=== PATIENT | male | born 1990 | race Caucasian/White ===

== ENCOUNTER 2024-08-23 12:34 | Emergency (ER) | payer OTHER, SELFPAY ==
[2024-08-23 12:44] VITALS: BP 158/65
[2024-08-23 13:11] LABS: % Basophils 0.5 % (0-2); % Eosinophils 5.4 % (0-6); % Immature Granulocytes 0.7 % (0-0.5); % Lymphocytes 24.3 % (20.5-51.1); % Monocytes 10.4 % (1.7-9.3); % Neutrophils 58.7 % (42.2-75.2); Absolute Eosinophils 0.2 10^3/uL (0-0.7); Absolute Lymphocytes 1.1 10^3/uL (1.2-3.4); Absolute Monocytes 0.5 10^3/uL (0.1-0.6); Absolute Neutrophils 2.6 10^3/uL (1.4-6.5); Hematocrit 30.6 % (39.0-52.0); Hemoglobin 10.2 g/dL (13.0-18.0); Mean Corp Hgb Conc. 33.3 g/dL (33.0-37.0); Nucleated Red Blood Cells % 0 % (-); Platelet Count 116 10^3/uL (130-400); Red Cell Dist. Width 17.5 % (11.5-14.5); White Blood Cell Count 4.4 10^3/uL (4.8-10.8)
[2024-08-23 13:27] LABS: ALT (SGPT) 19 U/L (0-50); AST (SGOT) 21 U/L (17-59); Albumin 3.9 g/dl (3.5-5.0); Alkaline Phosphatase 56 U/L (38-126); Blood Urea Nitrogen 42 mg/dl (9-20); Calcium 8.5 mg/dl (8.4-10.2); Carbon Dioxide 20 mmol/L (22-30); Chloride 110 mmol/L (98-107); Glucose 118 mg/dl (70-99); Lipase 85 U/L (23-300); Potassium 5.2 mmol/L (3.5-5.1); Sodium 138 mmol/L (135-145); Total Bilirubin 0.5 mg/dl (0.2-1.3); eGFR 53.91
--- NOTE | 2024-08-23 15:57 | ED.GENMED ---
History of Present Illness
General
Chief Complaint: Swelling
Source: patient
Exam Limitations: none
Time Seen by Provider: 08/23/24 15:01
Nursing documentation reviewed up to this point in time: agreed with
History of Present Illness
History of Present Illness:
Patient status post liver transplant at [facility] in January 2023, presents to ED secondary to 2-day history of abdominal and lower leg swelling. Denies vomiting or diarrhea. Denies fever or chills. Denies nausea or vomiting. Denies change
in bowel habits. Denies recent change in medications or diet. Denies recent illness. Patient states that he is scheduled to make an appointment to see his transplant team. Patient is taking all his medications, currently as prescribed. Patient
denies alcohol intake or any other illicit medications.
Past History
Past History
ED Past Medical History: Other (ADHD, Alcoholic Hepatitis, Cirrhosis); Negative Asthma, HTN, Hypercholesterolemia or NIDDM
ED Past Surgical History: Orthopedic (Right lower leg fracture repair)
Patient has exhibited threatening behavior?: No
PSI?: No
Social History
Tobacco: Smoker
Alcohol: Daily
Drug: Marijuana, Cocaine and Other (Heroin)
Personal: Single
Living: alone
Employment: Not employed
Family History
Family History: Other (Noncontributory)
Review of Systems
Review of Systems
Allergies reviewed?: Yes
All Other Systems: ROS reviewed and negative except as documented in HPI and ROS
Constitutional: Reports no symptoms
EENT: Reports no symptoms
Respiratory: Reports no symptoms
Cardiac: Reports no symptoms
ABD/GI: Reports other (abdominal distention)
: Reports no symptoms
Musculoskeletal: Reports edema
Skin: Reports no symptoms
Neurological: Reports no symptoms
Phy Exam
Physical Exam
Physical Exam:
Physical Exam
General: no apparent distress, not acutely ill. afebrile
Head: nc/at. eomi
Neck: supple. normal range of motion
Heart: s1/s2 regular rate and rhythm, no murmur. equal radial pulses.
Lungs: no acute respiratory distress. clear bilaterally
Abdomen: normal bowel sounds. not tender. mild distention. well heading surgical scar noted over mid-abdomen
Neuro: alert and oriented x 3. no focal neurological deficits
Skin: no rash
Psychiatric: well kept. interactive and cooperative
Extremities: LE b/l edema. no calf tenderness.
Course
Orders/Labs/Results
Orders:
Orders
08/23/24 12:56
Complete Blood Count/With Diff Urgent
Comprehensive Metabolic Panel Urgent
Lipase Urgent
08/23/24 16:32
CT Abd/pel Without Iv Or Oral Urgent
Comment:
Reason For Exam: flank pain with abdominal distention
Abnormal Lab Results
08/23/24
12:56
WBC 4.4 L 10^3/uL
(4.8-10.8)
RBC 3.00 L 10^6/uL
(4.70-6.10)
Hgb 10.2 L g/dL
(13.0-18.0)
Hct 30.6 L %
(39.0-52.0)
MCV 102.0 H fL
(80.0-94.0)
MCH 34.0 H pg
(27.0-31.0)
RDW 17.5 H %
(11.5-14.5)
Plt Count 116 L 10^3/uL
(130-400)
MPV 11.0 H fL
(7.4-10.4)
Absolute Lymphs (auto) 1.1 L 10^3/uL
(1.2-3.4)
Immature Gran % 0.7 H %
(0-0.5)
Monocytes % 10.4 H %
(1.7-9.3)
Potassium 5.2 H mmol/L
(3.5-5.1)
Chloride 110 H mmol/L
(98-107)
Carbon Dioxide 20 L mmol/L
(22-30)
BUN 42 H mg/dl
(9-20)
Creatinine 1.7 H mg/dL
(0.7-1.3)
Glucose 118 H mg/dl
(70-99)
Total Protein 6.0 L g/dl
(6.3-8.2)
08/23/24 12:56
08/23/24 12:56
Vital Signs
Initial and Last Documented VS:
Initial Vital Signs
Temp Pulse Resp BP Pulse Ox
98.4 F 76 18 158/65 100
08/23/24 12:44 08/23/24 12:44 08/23/24 12:44 08/23/24 12:44 08/23/24 12:44
Last Documented Vital Signs
Temp Pulse Resp BP Pulse Ox
98.4 F 75 18 121/70 100
08/23/24 12:44 08/23/24 18:03 08/23/24 18:03 08/23/24 18:03 08/23/24 18:03
MDM/Problems Addressed
MDM/Problems Addressed:
Discussed with GI fellow on-call, covering transplant service at [facility]. Requests CT abdomen pelvis without contrast. If CT does not reveal any worsening cirrhotic findings or anything else acute, patient can be discharged home, for
urgent outpatient follow-up at the clinic.
CT abdomen pelvis without any acute findings. Patient will be given copy of CT, to be discussed with transplant team as an outpatient at the clinic. Until then, advised patient to elevate the leg at home.
*Critical Care Note
Total Time (30-74mins, 75-104mins- exclusive of procedures): Not Applicable
ED Attending Note
-
Portions of this chart may have been created with voice recognition software.� Occasional wrong word or��sound alike� substitutions may have occurred due to the inherent limitations of voice recognition software.
Discharge Plan
Departure
Patient Disposition: Home (Routine Discharge)
Date of Disposition: 08/23/24
Time of Disposition: 18:51
Patient with high blood pressure during this ER visit?: Yes
Condition: Good
Discharge Problem:
Edema
Instructions: Dependent Edema (DC)
Prescriptions:
No Action
No Current Medications
0
Referrals:
Connie Morgan MD [Family Provider] -
Activity Restrictions/Additional Instructions:
As discussed, please follow-up with your liver transplant team service at [facility] for reevaluation.
Interventions
Interventions:
*Risk Screen - Suicide Last Done: 08/23/24 12:44
*General Assessment Last Done: 08/23/24 12:44
*Neglect/Abuse Screening Last Done: 08/23/24 12:44
ED- Fall Risk Assessment Last Done: 08/23/24 18:04
*Nursing Disposition Last Done: 08/23/24 19:12
ED- Cardiac Assessment Last Done: 08/23/24 18:04
ED- Pulmonary Assessment Last Done: 08/23/24 18:04
ED-Skin Assessment Last Done: 08/23/24 18:05
Discharge Date and Time
Discharge Date/Time: 08/23/24 19:13
Print Language: CHADIAN
[2024-08-23 16:26] VITALS: BP 123/78
[2024-08-23 16:29] VITALS: BP 123/78
[2024-08-23 18:03] VITALS: BP 121/70
== END 2024-08-23 19:13 | disposition home or self-care (01) ==
LOC: EMR 12:34
PROVIDERS: Emergency Medicine; EMERGENCY PHYSICIAN Emergency Medicine; FAMILY PHYSICIAN Emergency Medicine
DX: R60.0 Localized edema (principal); R14.0 Abdominal distension (gaseous); R10.31 Right lower quadrant pain; F90.9 Attention-deficit hyperactivity disorder, unspecified type; K74.60 Unspecified cirrhosis of liver; K70.10 Alcoholic hepatitis without ascites; F17.200 Nicotine dependence, unspecified, uncomplicated; Z94.4 Liver transplant status; Z91.018 Allergy to other foods; Z91.010 Allergy to peanuts
CPT/HCPCS: 99284; 74176; 80053; 83690; 85025

== ENCOUNTER 2024-09-19 12:50 | Emergency (ER) | payer OTHER, SELFPAY ==
[2024-09-19 13:03] VITALS: BP 119/62
[2024-09-19 13:56] LABS: % Basophils 0.4 % (0-2); % Eosinophils 2.8 % (0-6); % Immature Granulocytes 0.3 % (0-0.5); % Monocytes 7.2 % (1.7-9.3); % Neutrophils 68.3 % (42.2-75.2); Absolute Eosinophils 0.2 10^3/uL (0-0.7); Absolute Lymphocytes 1.4 10^3/uL (1.2-3.4); Absolute Monocytes 0.5 10^3/uL (0.1-0.6); Absolute Neutrophils 4.6 10^3/uL (1.4-6.5); Hematocrit 35.2 % (39.0-52.0); Hemoglobin 11.3 g/dL (13.0-18.0); Mean Corp Hgb Conc. 32.1 g/dL (33.0-37.0); Mean Corpuscular Hgb 33.2 pg (27.0-31.0); Mean Corpuscular Volume 103.5 fL (80.0-94.0); Mean Platelet Volume 11.1 fL (7.4-10.4); Nucleated Red Blood Cells % 0 % (-); Platelet Count 143 10^3/uL (130-400); Red Cell Dist. Width 16.1 % (11.5-14.5); White Blood Cell Count 6.8 10^3/uL (4.8-10.8)
[2024-09-19 14:13] LABS: ALT (SGPT) 24 U/L (0-50); AST (SGOT) 19 U/L (17-59); Albumin 4.5 g/dl (3.5-5.0); Alkaline Phosphatase 83 U/L (38-126); Blood Urea Nitrogen 69 mg/dl (9-20); Carbon Dioxide 23 mmol/L (22-30); Chloride 111 mmol/L (98-107); Glucose 114 mg/dl (70-99); Lipase 379 U/L (23-300); Sodium 143 mmol/L (135-145); Total Bilirubin 0.5 mg/dl (0.2-1.3); Total Protein 6.8 g/dl (6.3-8.2); eGFR 39.57
--- NOTE | 2024-09-19 15:02 | ED.GENMED ---
History of Present Illness
General
Chief Complaint: Numbness
Source: patient
Exam Limitations: none
Time Seen by Provider: 09/19/24 15:02
Nursing documentation reviewed up to this point in time: agreed with
History of Present Illness
History of Present Illness:
34-year-old male w h/o liver transplant at [facility] in January 2023, history of ADHD, alcoholic hepatitis, cirrhosis
He was seen here 08/23 for fluid buildup in his legs, had CT abd/pelvis as requested by his transplant team which was unremarkable and told to f/u with transplant team.
Went to [facility] 09/09-09/13 had 'all kinds of tests that really didn't show anything. '
Since discharge on 09/13 states the fluid problem has resolved but he has had gradually worsening numbness that started in his feet and slowly spread up both legs to buttocks.
He is here today because since Sunday he has had increasing numbness and tingling started in both his feet and has gradually worked its way up to his lower limbs; it is numbness and 'like when I walks I can't feel where my feet are.' Denies
weakness in legs 'it's just a weird sensation, it's hard to explain.'
He did have bilateral LE US during his [facility] admission that were neg.
Denies loss of bowel or bladder control. Denies CP or SOB.
Past History
Past History
ED Past Medical History: Other (ADHD, Alcoholic Hepatitis, Cirrhosis); Negative Asthma, HTN, Hypercholesterolemia or NIDDM
ED Past Surgical History: Orthopedic (Right lower leg fracture repair)
Patient has exhibited threatening behavior?: No
PSI?: No
Social History
Tobacco: Smoker
Alcohol: Daily
Drug: Marijuana, Cocaine and Other (Heroin)
Personal: Single
Living: alone
Employment: Not employed
Family History
Family History: Other (Noncontributory)
Review of Systems
Review of Systems
Allergies reviewed?: Yes
All Other Systems: ROS reviewed and negative except as documented in HPI and ROS
Constitutional: Denies fever or chills
Respiratory: Denies trouble breathing
Cardiac: Denies chest pain
ABD/GI: Denies abdominal pain, nausea, vomiting or diarrhea
: Denies incontinence or difficulty voiding
Musculoskeletal: Reports other (numbness, pins and needles in both lower extremities)
Skin: Reports no symptoms
Neurological: Reports numbness (legs and feet); Denies weakness
Phy Exam
Physical Exam
Physical Exam:
GENERAL: No acute distress. A&Ox3.
CONSTITUTIONAL: Afebrile.
EYES: clear, conjunctivae normal
ENMT: moist mucus membranes, Pharynx nl
RESPIRATORY: Regular respirations, nonlabored, lungs clear.
CARDIOVASCULAR: Regular rate and rhythm, no murmurs, no rubs.
GI: Soft, nontender, normal BS
MUSCULOSKELETAL: Moves with ease. Well perfused.
SKIN: Warm, dry, pink
PSYCH: Normal mood and affect. Well kept, interactive and appropriate
NEUROLOGIC: Awake, alert and oriented. Strength equal throughout. Patellar and achilles reflexes are normal. Ambulates well with steady gait. No focal neurological deficits
Course
Orders/Labs/Results
Orders:
Orders
09/19/24 13:06
Electrocardiogram (*1) Urgent
Reason for Study: Other
Other Reason for Exam: b/l leg numbness
EKG- Treatment ONCE
09/19/24 13:20
Complete Blood Count/With Diff Urgent
Comprehensive Metabolic Panel Urgent
Lipase Urgent
Magnesium Urgent
Comment: ADD ON
NT-proBNP Urgent
Comment: ADD ON
09/19/24 15:01
Add On- LAB Urgent
Tests Added?: BNP
09/19/24 15:15
Add On- LAB Urgent
Tests Added?: magnesium
Abnormal Lab Results
09/19/24
13:20
RBC 3.40 L 10^6/uL
(4.70-6.10)
Hgb 11.3 L g/dL
(13.0-18.0)
Hct 35.2 L %
(39.0-52.0)
MCV 103.5 H fL
(80.0-94.0)
MCH 33.2 H pg
(27.0-31.0)
MCHC 32.1 L g/dL
(33.0-37.0)
RDW 16.1 H %
(11.5-14.5)
MPV 11.1 H fL
(7.4-10.4)
Chloride 111 H mmol/L
(98-107)
BUN 69 H mg/dl
(9-20)
Creatinine 2.2 H mg/dL
(0.7-1.3)
Glucose 114 H mg/dl
(70-99)
Lipase 379 H U/L
(23-300)
09/19/24 13:20
09/19/24 13:20
Vital Signs
Initial and Last Documented VS:
Initial Vital Signs
Temp Pulse Resp BP Pulse Ox
98.0 F 83 16 119/62 98
09/19/24 13:03 09/19/24 13:03 09/19/24 13:03 09/19/24 13:03 09/19/24 13:03
Last Documented Vital Signs
Temp Pulse Resp BP Pulse Ox
98.0 F 83 16 133/81 100
09/19/24 13:03 09/19/24 13:03 09/19/24 13:03 09/19/24 15:22 09/19/24 15:22
MDM/Problems Addressed
Differential Diagnosis Includes:
Peripheral neuropathy, GBS
MDM/Problems Addressed:
34-year-old male w h/o liver transplant at [facility] in January 2023, history of ADHD, alcoholic hepatitis, cirrhosis
He was seen here 08/23 for fluid buildup in his legs, had CT abd/pelvis as requested by his transplant team which was unremarkable and told to f/u with transplant team.
Went to [facility] 09/09-09/13 had 'all kinds of tests that really didn't show anything. '
Since discharge on 09/13 states the fluid problem has resolved but he has had gradually worsening numbness that started in his feet and slowly spread up both legs to buttocks.
He is here today because since Sunday he has had increasing numbness and tingling started in both his feet and has gradually worked its way up to his lower limbs; it is numbness and 'like when I walks I can't feel where my feet are.' Denies
weakness in legs 'it's just a weird sensation, it's hard to explain.'
He did have bilateral LE US during his [facility] admission that were neg.
Denies loss of bowel or bladder control. Denies CP or SOB.
Pt ambulating well.
LE reflexes normal, strength equal throughout, ambulates well, do not suspect GBS
Case discussed with Dr. Victoria who agrees treat for neuropathy and pt has f/u appointments with his sand analyst and heptologist.
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
Will try Lyrica now and he will let his doctor know if it helps
Pt ambulated out with normal gait at discharge
*Critical Care Note
Total Time (30-74mins, 75-104mins- exclusive of procedures): Not Applicable
ED Attending Note
-
Portions of this chart may have been created with voice recognition software.� Occasional wrong word or��sound alike� substitutions may have occurred due to the inherent limitations of voice recognition software.
Discharge Plan
Departure
Patient Disposition: Home (Routine Discharge)
Date of Disposition: 09/19/24
Time of Disposition: 15:39
Patient with high blood pressure during this ER visit?: No
Condition: Good
Discharge Problem:
Neuropathic pain of both legs
Instructions: Peripheral Neuropathy (DC)
Prescriptions:
New
pregabalin [Lyrica] 25 mg capsule
25 mg PO BID Qty: 30 0RF
pregabalin 25 mg capsule
25 mg PO BID Qty: 30 0RF
Referrals:
your, doctor at [facility] [Other] - Keep scheduled appt
Activity Restrictions/Additional Instructions:
As we discussed, I believe you have neuropathy in your legs.
I sent a prescription to your pharmacy for Lyrica to take 25 mg twice a day to start, it can be increased if needed.
Discuss with your doctor when you see him later this month whether he wants to increase it or not.
Return here immediately for weakness in the legs, inability to walk, loss of control of bowel or bladder.
Interventions
Interventions:
*Risk Screen - Suicide Last Done: 09/19/24 13:03
*General Assessment Last Done: 09/19/24 15:18
*Neglect/Abuse Screening Last Done: 09/19/24 13:03
*ED- Fall Risk Assessment Last Done: 09/19/24 15:18
*ED COVID-19 Vaccine History Last Done: 09/19/24 15:18
*Nursing Disposition Last Done: 09/19/24 16:09
ED- Neurological Assessment Last Done: 09/19/24 15:18
Discharge Date and Time
Discharge Date/Time: 09/19/24 16:12
Print Language: [email or web address]
[2024-09-19 15:22] VITALS: BP 133/81
[2024-09-19 16:03] LABS: Magnesium 1.9 mg/dl (1.6-2.3)
[2024-09-19 16:13] LABS: NT-proBNP 227 pg/ml
== END 2024-09-19 16:12 | disposition home or self-care (01) ==
LOC: EMR 12:50
PROVIDERS: Student in an Organized Health Care Education/Training Program; EMERGENCY PHYSICIAN Emergency Medicine; FAMILY PHYSICIAN Emergency Medicine
DX: G62.9 Polyneuropathy, unspecified (principal); F17.200 Nicotine dependence, unspecified, uncomplicated; Z94.4 Liver transplant status
CPT/HCPCS: 99284; 80053; 83690; 83735; 83880; 85025; 93005